=== PATIENT | male | born 1950 | race Caucasian/White ===

== ENCOUNTER 2024-08-31 09:19 | Outpatient (CLI) | payer MEDICARE, OTHER, SELFPAY ==
--- NOTE | 2024-08-31 09:29 | US_ITS ---
WS: [id number] RENAL ULTRASOUND HISTORY: CHRONIC KIDNEY DZ COMPARISON: None available. TECHNIQUE: 2-D and color Doppler imaging of the kidney submitted. Right kidney: 10.7 cm x 4.3 cm x 5.5 cm. Cortex: 1.2 cm Normal size kidney. Possible extrarenal pelvis or cyst from the mid RIGHT kidney measures 3.0 x 4.1 x 2.7 cm. This is a poorly visualized area of the kidney. This does not appear to be a solid mass and there is no increased vascularity. Left kidney: 9.9 cm x 4.7 cm x 5.5 cm. Cortex: 1.1 cm Normal echogenicity with no hydronephrosis or mass. Aorta: Normal. Urinary Bladder: Normal distention. Enlarged heterogeneous prostate gland measures 4.0 x 4.4 x 4.0 cm. US/US renal BI* [id number] IMPRESSION: 1. No hydronephrosis or solid mass. 2. RIGHT renal cyst versus extrarenal pelvis. No solid mass. 3. Enlarged heterogeneous prostate gland.
== END 2024-08-31 09:20 | disposition home or self-care (01) ==
PROVIDERS: PCP Internal Medicine; Visit Provider Internal Medicine
DX: N28.1 Cyst of kidney, acquired (principal); N40.0 Benign prostatic hyperplasia without lower urinary tract symptoms
CPT/HCPCS: 76770